=== PATIENT | male | born 1970 | race Caucasian/White ===

== ENCOUNTER 2016-11-04 08:11 | Emergency (ER) | payer OTHER ==
[~2016-11-04] VITALS: Ht 167.6 cm; Wt 90.6 kg
[2016-11-04 08:14] VITALS: BP 136/88
[2016-11-04] MEDS ORDERED: VORT10TA PO (08:52)
[2016-11-04] MEDS ORDERED: ALPR1TAB2 PO (08:52)
[2016-11-04] MEDS ORDERED: HYDR-882 PO (08:52)
[2016-11-04] MEDS ORDERED: ASPIRIN 81 MG TABLET CHEW PO ONE (09:00)
[2016-11-04 09:05] LABS: HEMOGLOBIN 15.8 g/dL (13.7-18.0)
[2016-11-04 09:18] LABS: ASPARTATE AMINO TRANSFERASE 16 U/L (15-37); BLOOD UREA NITROGEN 15 mg/dL (7-18)
[2016-11-04 09:24] LABS: IS PT STATUS REG ER OR PRE ER? YES
[2016-11-04] MEDS ORDERED: ASPIRIN 81 MG TABLET CHEW ONE (09:56)
== END 2016-11-04 10:05 | disposition home or self-care (01) ==
LOC: ED 09:57
DX: R07.89 Other chest pain (principal); F41.1 Generalized anxiety disorder; Z88.0 Allergy status to penicillin; Z85.47 Personal history of malignant neoplasm of testis
CPT/HCPCS: 36415; 71010; 80053; 84484; 85025; 93005

== ENCOUNTER 2018-10-28 04:29 | Emergency (ER) | payer OTHER ==
[~2018-10-28] VITALS: Ht 170.2 cm; Wt 69.0 kg
[~2018-10-28 04:29] MED LIST: ALPR1TAB2 PO; HYDR-3653 PO; VORT10TA PO
--- NOTE | 2018-10-28 04:48 | NUR ---
ASSUMED CARE OF PATIENT. PATIENT REPORTS HE HAS BEEN HAVING AN ANXIETY ATTACK FOR 4 DAYS. HOME MEDICATION IS NOT WORKING. PT IS ANXIOUS IN ROOM. VS STABLE. SIMPLEX OPERATOR ON. NSR NOTED. CALL LIGHT IN PLACE. WILL CONTINUE TO MONITOR.
[2018-10-28] MEDS ORDERED: ASPIRIN 81 MG TABLET CHEW ONE (05:18)
[2018-10-28] MEDS ORDERED: LORazepam 1MG TABLET ONE (05:26)
[2018-10-28] MEDS ORDERED: SODIUM CHLORIDE FLUSH 10ML SYR IVF ONE (05:30)
[2018-10-28] MEDS ORDERED: NITROGLYCERIN SINGLE TAB 0.4 MG SL PRN (05:30)
[2018-10-28] MEDS ORDERED: LORazepam 1MG TABLET PO ONE (05:30)
[2018-10-28] MEDS ORDERED: ASPIRIN 81 MG TABLET CHEW PO ONE (05:30)
[2018-10-28] MEDS ORDERED: HYDR-3240 PO (05:33)
[2018-10-28] MEDS ORDERED: TRAZ50TA66 PO (05:34)
[2018-10-28] MEDS ORDERED: RISP1TAB45 PO (05:34)
[2018-10-28] MEDS ORDERED: CLON1TAB PO (05:34)
[2018-10-28] MEDS ORDERED: GABAPENTIN (05:35)
[2018-10-28 05:47] LABS: BASOPHILS # (AUTO) 0.02 x10^3/uL (0-0.1); BASOPHILS % (AUTO) 1 % (0-1); EOSINOPHILS # (AUTO) 0.05 x10^3/uL (0-0.4); EOSINOPHILS % (AUTO) 1 % (1-7); LYMPHOCYTES # (AUTO) 1.34 x10^3/uL (1-3.4); LYMPHOCYTES % (AUTO) 31 % (22-44); MD NO; MEAN CORPUSCULAR HGB CONC 34.8 g/dL (33.2-36.2); MEAN PLATELET VOLUME 8.8 fL (7.4-10.4); MONOCYTES # (AUTO) 0.41 x10^3/uL (0.2-0.8); MONOCYTES % (AUTO) 10 % (2-9); NEUTROPHILS % (AUTO) 58 % (42-75); PLATELET COUNT 198 x10^3/uL (130-400); RED BLOOD COUNT 4.41 x10^6/uL (4.38-5.82); RED CELL DISTRIBUTION WIDTH 12.9 % (9.4-14.8)
[2018-10-28 05:52] LABS: ALBUMIN 4.2 g/dL (3.4-5.0); ANION GAP 7 mmol/L (5-15); CALCIUM 9.1 mg/dL (8.5-10.1); CHLORIDE 111 mmol/L (98-107)
[2018-10-28 05:56] LABS: TROPONIN I < 0.015 ng/mL (0.000-0.045)
--- NOTE | 2018-10-28 06:13 | NUR ---
PT RESTING IN ROOM. NO ACUTE DISTRESS NOTED. AT BEDSIDE. CALL LIGHT IN PLACE. WILL CONTINUE TO MONITOR.
[2018-10-28 06:34] VITALS: BP 100/53
--- NOTE | 2018-10-28 06:35 | NUR ---
PT REPORTS HIS ANXIETY HAS RESOLVED. PT DISCHARGED
== END 2018-10-28 06:36 | disposition home or self-care (01) ==
LOC: ED 05:45
DX: F41.1 Generalized anxiety disorder (principal); R07.89 Other chest pain; Z85.47 Personal history of malignant neoplasm of testis
CPT/HCPCS: 36415; 71045; 80048; 82040; 84484; 85025; 93005; 99284